=== PATIENT | female | born 1995 | race Caucasian/White ===

== ENCOUNTER 2016-11-17 21:44 | Emergency (ER) | payer OTHER ==
[~2016-11-17] VITALS: Ht 160 cm; Wt 84.1 kg
[~2016-11-17 21:44] MED LIST: CLONIDINE HCL0.2 MG; DESYREL100 MG PO; FOCALIN XR20 MG; LAMICTAL100 MG; ZOLOFT100 MG
[2016-11-17 22:19] LABS: HEMATOCRIT 39.7 % (36.0-46.0); MCHC 31.5 G/DL (30.0-36.0); MCV 82.5 FL (83-99); MEAN PLAT.VOLUME 11.5 uM^3 (9.5-12.4); PLATELET COUNT 243 K/uL (156-360); RBC DIS.WIDTH-CV 14.2 % (11.8-14.6); RBC DIS.WIDTH-SD 42.6 % (39-53); RED BLOOD COUNT 4.81 M/uL (3.80-5.20); WHITE BLOOD COUNT 9.3 K/uL (4.1-10.2)
[2016-11-17 22:30] LABS: ADD MIUA? YES; BILIRUBIN NEGATIVE; BLOOD LARGE; COLOR YELLOW ((YELLOW)); GLUCOSE (STRIP) NEGATIVE; KETONES NEGATIVE; LEUKOCYTES TRACE; NITRITE NEGATIVE; PROTEIN (STRIP) 30; SPECIFIC GRAVITY 1.019 (1.000-1.030); UROBILINOGEN 0.2 MG/DL (0.2-1.0)
[2016-11-17 22:41] LABS: CHLORIDE 106 mEq/L (99-109); POTASSIUM 4.3 mEq/L (3.7-5.4); SODIUM 138 mEq/L (136-147)
[2016-11-17 22:43] LABS: GLUCOSE 106 mg/dL (70-99)
[2016-11-17 22:45] LABS: ANION GAP 9 MEQ/L (2-14); TOTAL BILIRUBIN 0.4 mg/dL (0.0-1.0)
[2016-11-17 22:47] LABS: ALKALINE PHOSPHATASE 57 IU/L (3-129); GFR ESTIMATE (CALCULATED) > 59 mL/min/
[2016-11-17 22:48] LABS: UREA NITROGEN (BUN) 16 mg/dL (9-23)
[2016-11-17 22:48] LABS: BACTERIA RARE /HPF; EPITHELIAL CELLS 1+ /HPF; MUCUS TRACE /LPF; RED BLOOD CELLS TNTC /HPF (0-5); UCUL ADDED? NO
[2016-11-17 22:57] LABS: QUANTITATIVE HCG < 4.0 MIU/ML
[2016-11-18] MEDS ORDERED: OMEPRAZOLE40 M1 PO (00:22)
[2016-11-18 00:33] VITALS: BP 123/69
== END 2016-11-18 00:34 | disposition home or self-care (01) ==
LOC: EXP 21:44 → EME 21:44 → EXP 11-18 00:34
DX: R10.9 Unspecified abdominal pain (principal); R11.2 Nausea with vomiting, unspecified; R07.9 Chest pain, unspecified; R06.02 Shortness of breath; F31.9 Bipolar disorder, unspecified
CPT/HCPCS: 71020; 80053; 81003; 84702; 85027; 93005; 99281; 99284